=== PATIENT | female | born 1990 | race Caucasian/White ===

== ENCOUNTER 2017-08-16 10:33 | Inpatient (IN) | payer MEDICAID ==
[~2017-08-16] VITALS: Ht 167.6 cm; Wt 60.0 kg
[2017-08-16 10:43] VITALS: BP 115/75; PULSE 65; RESP 18; TEMP 97.9; O2SAT 99
[2017-08-16 12:11] LABS: AUTOMATED NEUTROPHIL # 4.1 TH/MM3 (1.8-7.7); BASOPHIL % 0.4 % (0.0-2.0); EOSINOPHIL # 0.3 TH/MM3 (0-0.4); EOSINOPHIL % 4.8 % (0.0-4.0); HEMO FLAGS DIFF FINAL; LYMPH % 23.1 % (9.0-44.0); LYMPHOCYTE # 1.5 TH/MM3 (1.0-4.8); MEAN CELL VOLUME 90.6 FL (80.0-100.0); MEAN CORPUSCULAR HEMOGLOBIN 30.7 PG (27.0-34.0); MEAN CORPUSCULAR HGB CONC 33.9 % (32.0-36.0); MONO % 9.9 % (0.0-8.0); NEUT % 61.8 % (16.0-70.0); PLATELET COUNT 291 TH/MM3 (150-450); RED BLOOD COUNT 4.42 MIL/MM3 (4.00-5.30); RED CELL DISTRIBUTION WIDTH 13.9 % (11.6-17.2); WHITE BLOOD COUNT 6.6 TH/MM3 (4.0-11.0)
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
[2017-08-16 12:29] LABS: ALKALINE PHOSPHATASE 44 U/L (45-117); ALT (GPT) 80 U/L (10-53); TOTAL BILIRUBIN ADULT 0.7 MG/DL (0.2-1.0)
[2017-08-16 12:42] LABS: ANION GAP 9 MEQ/L (5-15); BICARBONATE 23.7 MEQ/L (21.0-32.0); BLOOD UREA NITROGEN 12 MG/DL (7-18); CHLORIDE 103 MEQ/L (98-107); GLOMERULAR FILTRATION RATE 93 ML/MIN (>89); SODIUM (NA) 136 MEQ/L (136-145)
[2017-08-16 12:43] LABS: ALCOHOL LESS THAN 3 MG/DL (0-5); AST (GOT) 74 U/L (15-37); POTASSIUM 4.8 MEQ/L (3.5-5.1)
[2017-08-16] MEDS ORDERED: LORazepam 1 MG TAB PO PRN (14:15)
[2017-08-16] MEDS ORDERED: MAGNESIUM HYDROXIDE SUSP 30 ML CUP PO PRN (14:15)
[2017-08-16] MEDS ORDERED: hydrOXYzine HCL 50 MG TAB PO PRN (14:15)
[2017-08-16] MEDS ORDERED: ACETAMINOPHEN 325 MG TAB PO PRN (14:15)
[2017-08-16] MEDS ORDERED: LORazepam 2 MG/ML VIAL IM PRN (14:15)
[2017-08-16] MEDS ORDERED: ALUMINUM/MAGNESIUM/SIMETH 30 ML CUP PO PRN (14:15)
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
[2017-08-17 05:42] VITALS: BP 107/68; PULSE 96; RESP 17; TEMP 98; O2SAT 100
--- NOTE | 2017-08-17 10:24 | PD.TTN ---
Patient Problems 1. Discharge planning 2. Medication compliance 3. Knowledge deficit 4. Lack of coping skills Progress Toward Goals Provider Present: Dr. Demian Martines Provider Input: Pt is new to the unit and will be evaluated as well as possible changes to medication regiment. Nurse(s) Present: Deanna Cortez RN Nurse(s) Input: Pt is new to the unit and will continue to be monitored and evaluated. She appears to be less labile and more clear today than on admission date yesterday. Psychiatric Counselors Present: GORDON Colon Psych Therapist Input: Pt is new to the unit and will be evaluted using biopsychosocial assessment. Group Spec/RT/OT/PHILLIP Present: Rafita Borjas OT Group Spec/RT/OT/PHILLIP Input: Pt is a new admit and will be evaluated. Discharge Plan SMA Pt states that she lives with her father, where she will return after discharge , and will be set up with outpatient psychiatric follow up in the community. Documentation Scribe: GORDON Colon Jonathan LMHC Aug 17, 2017 10:24
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
[2017-08-17 13:52] LABS: AUTOMATED NEUTROPHIL # 3.8 TH/MM3 (1.8-7.7); BASOPHIL % 0.6 % (0.0-2.0); EOSINOPHIL # 0.3 TH/MM3 (0-0.4); EOSINOPHIL % 4.2 % (0.0-4.0); HEMATOCRIT 37.6 % (35.0-46.0); HEMO FLAGS DIFF FINAL; LYMPH % 29.8 % (9.0-44.0); LYMPHOCYTE # 2.1 TH/MM3 (1.0-4.8); MEAN CELL VOLUME 90.7 FL (80.0-100.0); MEAN CORPUSCULAR HEMOGLOBIN 31.4 PG (27.0-34.0); MEAN CORPUSCULAR HGB CONC 34.6 % (32.0-36.0); MONO % 10.8 % (0.0-8.0); NEUT % 54.6 % (16.0-70.0); PLATELET COUNT 255 TH/MM3 (150-450); RED BLOOD COUNT 4.14 MIL/MM3 (4.00-5.30); RED CELL DISTRIBUTION WIDTH 13.6 % (11.6-17.2)
[2017-08-17 14:05] LABS: ALT (GPT) 66 U/L (10-53); ANION GAP 7 MEQ/L (5-15); AST (GOT) 45 U/L (15-37); BICARBONATE 26.5 MEQ/L (21.0-32.0); BLOOD UREA NITROGEN 17 MG/DL (7-18); CHLORIDE 105 MEQ/L (98-107); GLOMERULAR FILTRATION RATE 73 ML/MIN (>89); SODIUM (NA) 138 MEQ/L (136-145)
[2017-08-17 14:32] LABS: ALKALINE PHOSPHATASE 46 U/L (45-117); HDL CHOLESTEROL 31.4 MG/DL (40.0-60.0); LDL CHOLESTEROL 37 MG/DL (0-99); TOTAL BILIRUBIN ADULT 0.3 MG/DL (0.2-1.0)
--- NOTE | 2017-08-17 15:22 | RADRPT ---
EXAM DATE/TIME: 08/17/2017 15:05 [facility] COMPARISON: No previous studies available for comparison. INDICATIONS : Right hand pain and swelling. No known injury. MEDICAL HISTORY : None. SURGICAL HISTORY : None. ENCOUNTER: Initial ACUITY: 1 week PAIN SCORE: 4/10 LOCATION: Right hand. FINDINGS: Three view examination of the right hand demonstrates no soft tissue swelling, dislocation, or fractu re. The carpal bones appear intact. The interphalangeal and metacarpophalangeal joints are intact. Bony mineralization is normal. CONCLUSION: No acute osseous injury. Dc Becker MD on August 17, 2017 at 15:20 Board Certified Radiologist. This report was verified electronically.
--- NOTE | 2017-08-17 15:22 | RADRPT ---
EXAM DATE/TIME: 08/17/2017 15:04 [facility] COMPARISON: No previous studies available for comparison. INDICATIONS : Right wrist pain and swelling. No known injury. MEDICAL HISTORY : None. SURGICAL HISTORY : None. ENCOUNTER: Initial ACUITY: 1 week PAIN SCORE: 4/10 LOCATION: Right wrist. FINDINGS: Three view examination of the right wrist demonstrates no soft tissue swelling, dislocation, or fract ure. The carpal bones are in normal alignment. The joint spaces are maintained. Bony mineralizatio n is normal. CONCLUSION: No acute osseous injury. Dc Becker MD on August 17, 2017 at 15:19 Board Certified Radiologist. This report was verified electronically.
[2017-08-17 15:49] LABS: HEMOGLOBIN A1a 1.4 %; HEMOGLOBIN A1b 0.9 %; HEMOGLOBIN Ao 84.6 %; HEMOGLOBIN F 0.9 %; HEMOGLOBIN LA1C 2.4 %; HEMOGLOBIN P3 3.7 %
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
[2017-08-17 18:10] VITALS: BP 105/60; PULSE 72; RESP 18; TEMP 98; O2SAT 100
--- NOTE | 2017-08-17 18:19 | RADRPT ---
EXAM DATE/TIME: 08/17/2017 17:47 [facility] COMPARISON: No previous studies available for comparison. INDICATIONS : Psychosis. MEDICAL HISTORY : None. SURGICAL HISTORY : Tubal ligation. ENCOUNTER: Subsequent ACUITY: 1 day PAIN SCORE: 0/10 LOCATION: cranial TECHNIQUE: Multiplanar, multisequence MRI of the brain was performed without contrast. FINDINGS: CEREBRUM: The ventricles are normal for age. No evidence of midline shift, mass lesion, hemorrhage or acute in farction. No extraaxial fluid collections are seen. The pituitary gland and suprasellar cistern are normal in configuration. WHITE MATTER: No significant signal abnormalities are seen in the white matter. POSTERIOR FOSSA: The cerebellum and brainstem are intact. The 4th ventricle is midline. The cerebellopontine angle is unremarkable. The cerebellar tonsils are normal in position. DIFFUSION IMAGING: No focal areas of restricted diffusion are seen. No evidence of acute infarction. EXTRACRANIAL: The visualized portions of the orbits unremarkable. Scattered sinus disease including mucoperiosteal thickening of the ethmoid, right frontal and both maxillary sinuses. CONCLUSION: 1. No acute intracranial abnormality. 2. Scattered sinus disease. Murtaza Gooden MD on August 17, 2017 at 18:15 Board Certified Radiologist. This report was verified electronically.
--- NOTE | 2017-08-17 20:00 | EKG ---
Date Performed: 08/17/2017 Time Performed: 17:11:39 PTAGE: 26 years EKG: Sinus rhythm NORMAL ECG NO PREVIOUS TRACING DOCTOR: Billy Coburn Interpretating Date/Time 08/17/2017 19:58:02
[2017-08-17] MEDS: OLANZapine ODT 5 MG TAB PO SCH (21:00)
[2017-08-18] MEDS ORDERED: hydrOXYzine HCL 50 MG TAB PO PRN (03:00)
[2017-08-18 05:48] VITALS: BP 99/49; PULSE 70; RESP 18; TEMP 98.2; O2SAT 97
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
[2017-08-18 10:38] LABS: INDIRECT BILIRUBIN 0.1 MG/DL (0.0-0.8); TOTAL BILIRUBIN ADULT 0.2 MG/DL (0.2-1.0)
[2017-08-18 17:03] VITALS: BP 113/59; PULSE 61; RESP 18; TEMP 97.5; O2SAT 98
--- NOTE | 2017-08-18 17:38 | MG ---
cc: GAUDENCIO WAKEFIELD MD Lab No: Date: 08/18/2017 Age: Sex: F Race: ELECTROENCEPHALOGRAM RECORD NUMBER [id number] DATE OF 1990 HISTORY A 26-year-old with a history of depression and anxiety, mental status changes. DESCRIPTION Well formed alpha activity 8-10 Hz, 20-50 microvolts with low amplitude beta in the frontal channels followed by generalized slowing with transition into drowsy state followed by awake drowsy off and on. Some vertex waves noted as well as sleep spindles suggestive of stage I and stage II sleep. A couple of central sharp transients epoch 97. Reduced driving with photic stimulation. Rhythmic theta bursts occurring epoch 69 at T5. INTERPRETATION Mild nonspecific changes noted above, otherwise stable awake sleep EEG. Clinical correlation. Gaudencio Wakefield MD MG/KK /4:23 PM /5:19 PM
[2017-08-18] MEDS: OLANZapine ODT 5 MG TAB PO SCH (20:27)
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
[2017-08-20 07:49] LABS: PHENCYCLIDINE URINE NEG (NEG)
[2017-08-20 07:50] LABS: BATH SALTS (MDPV) UR NEG (NEG); ECSTASY (MDMA) UR NEG (NEG); HEROIN (6-ACETYLMORPHINE) UR NEG (NEG); K2 SPICE UR NEG (NEG); OBGABAPENTIN UR NEG (NEG); OBHYDROMORPHONE U NEG (NEG); OBMETHADONE UR NEG (NEG)
== END 2017-08-19 12:50 | disposition left against medical advice (07) | DRG 885 ==
LOC: NEPD 10:33 → NEDA 14:09 → H270 15:33
PROVIDERS: ADMIT Psychiatry & Neurology Psychiatry; ATTEND Psychiatry & Neurology Psychiatry
DX: F23 Brief psychotic disorder (principal); R45.851 Suicidal ideations; F43.10 Post-traumatic stress disorder, unspecified; F32.9 Major depressive disorder, single episode, unspecified; R74.0 Nonspecific elevation of levels of transaminase and lactic acid dehydrogenase [LDH]; L29.9 Pruritus, unspecified; M79.641 Pain in right hand; F17.210 Nicotine dependence, cigarettes, uncomplicated; Z81.8 Family history of other mental and behavioral disorders; Z91.419 Personal history of unspecified adult abuse
CPT/HCPCS: 70551; 73110; 73130; 80053; 80061; 80074; 80076; 80307; 82140; 82306; 82607; 83036; 84439; 84443; 84703; 85025; 86592; 86703; 93005; 95819; 99285; G0481

== ENCOUNTER 2018-03-02 11:32 | Emergency (ER) | payer OTHER ==
[~2018-03-02] VITALS: Ht 170.2 cm; Wt 64.0 kg
[2018-03-02 11:47] VITALS: BP 133/65; PULSE 89; RESP 18; TEMP 97.9; O2SAT 98
[2018-03-02] MEDS ORDERED: TETANUS/DIPHTHERIA TOXOID ADULT 0.5 ML VIAL IM ONE (12:00)
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
[2018-03-02 13:15] LABS: AUTOMATED NEUTROPHIL # 4.2 TH/MM3 (1.8-7.7); BASOPHIL % 0.5 % (0.0-2.0); EOSINOPHIL # 0.1 TH/MM3 (0-0.4); EOSINOPHIL % 1.7 % (0.0-4.0); HEMATOCRIT 38.8 % (35.0-46.0); HEMOGLOBIN 12.7 GM/DL (11.6-15.3); LYMPH % 23.5 % (9.0-44.0); LYMPHOCYTE # 1.5 TH/MM3 (1.0-4.8); MEAN CELL VOLUME 87.7 FL (80.0-100.0); MEAN CORPUSCULAR HEMOGLOBIN 28.8 PG (27.0-34.0); MEAN CORPUSCULAR HGB CONC 32.9 % (32.0-36.0); MONO % 8.5 % (0.0-8.0); MONOCYTE # 0.5 TH/MM3 (0-0.9); NEUT % 65.8 % (16.0-70.0); PLATELET COUNT 232 TH/MM3 (150-450); RED BLOOD COUNT 4.42 MIL/MM3 (4.00-5.30); WHITE BLOOD COUNT 6.4 TH/MM3 (4.0-11.0)
[2018-03-02] MEDS ORDERED: IOHEXOL 350 MG/ML 10 ML VIAL (for RAD DIAG) IVCONTRAST ONE (13:20)
[2018-03-02 13:25] LABS: PROTHROMBIN TIME - PATIENT 10.1 SEC (9.8-11.6)
[2018-03-02 13:29] LABS: BICARBONATE 25.4 MEQ/L (21.0-32.0); CALCIUM 8.5 MG/DL (8.5-10.1); CREATININE 0.77 MG/DL (0.50-1.00)
[2018-03-02] MEDS ORDERED: LORazepam 2 MG/ML VIAL IV PUSH ONE (14:15)
[2018-03-02] MEDS ORDERED: diphenhydrAMINE HCL 50 MG/ML VIAL IV PUSH ONE (14:15)
[2018-03-02] MEDS ORDERED: ZIPRASIDONE MESYLATE 20 MG VIAL IM ONE (14:30)
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
[2018-03-02] MEDS ORDERED: no meds (16:56)
[2018-03-02 16:58] VITALS: BP 121/74; PULSE 74; RESP 16; O2SAT 99
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
[2018-03-03] MEDS ORDERED: AMOXICILLIN/CLAVULANATE K 875 MG TAB PO ONE (06:15)
[2018-03-03] MEDS ORDERED: AUGM875T3 PO (06:15)
[2018-03-03 08:05] VITALS: BP 135/75; PULSE 87; RESP 15; TEMP 98.9; O2SAT 100
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
--- NOTE | 2018-03-03 14:19 | PD ---
Physical Exam Date Seen by Provider: Mar 03, 2018 Time Seen by Provider: 14:17 Narrative For full history and physical examination please see previous notes. Data Data Last Documented VS Vital Signs Date Time Temp Pulse Resp B/P (MAP) Pulse Ox O2 Delivery O2 Flow Rate FiO2 03/03/18 08:05 98.9 87 15 135/75 (95) 100 Room Air Orders Orders Basic Metabolic Panel (Bmp) (03/02/18 11:53) Complete Blood Count With Diff (03/02/18 11:53) Prothrombin Time / Inr (Pt) (03/02/18 11:53) Act Partial Throm Time (Ptt) (03/02/18 11:53) Type And Screen (03/02/18 11:53) Drug Screen, Random Urine (03/02/18 11:53) Ct Brain W/O Iv Contrast(Rout) (03/02/18 11:53) Ct Cerv Spine W/O Contrast (03/02/18 11:53) Ct Abd/Pel W Iv Contrast(Rout) (03/02/18 11:53) Ct Thorax/ Chest W Iv Contrast (03/02/18 11:53) Ct Thor Spine W Iv Contrast (03/02/18 11:53) Ct Lumb Spine W Iv Contrast (03/02/18 11:53) Apply Cervical Collar (03/02/18 11:53) Iv Access Insert/Monitor (03/02/18 11:53) Ecg Monitoring (03/02/18 11:53) Ed Urine Pregnancytest Poc (03/02/18 11:53) Forearm (2vws) (03/02/18 ) Tetanus/Diphtheria Tox Adult (Tetanus/Di (03/02/18 12:00) Chest, Single Ap (03/02/18 ) Alcohol (Ethanol) (03/02/18 11:56) Elbow, Complete (4 Vws) (03/02/18 ) Lorazepam Inj (Ativan Inj) (03/02/18 14:15) Diphenhydramine Inj (Benadryl Inj) (03/02/18 14:15) Ziprasidone Inj (Geodon Inj) (03/02/18 14:30) Psych Screen (03/02/18 16:35) Amoxicil-Clavulanate (Augmentin) (03/03/18 06:15) Diet Regular Basic (03/03/18 Breakfast) Ed Discharge Order (03/03/18 14:16) Labs Laboratory Tests Test 03/02/18 12:20 03/02/18 15:04 White Blood Count 6.4 TH/MM3 Red Blood Count 4.42 MIL/MM3 Hemoglobin 12.7 GM/DL Hematocrit 38.8 % Mean Corpuscular Volume 87.7 FL Mean Corpuscular Hemoglobin 28.8 PG Mean Corpuscular Hemoglobin Concent 32.9 % Red Cell Distribution Width 15.0 % Platelet Count 232 TH/MM3 Mean Platelet Volume 7.0 FL Neutrophils (%) (Auto) 65.8 % Lymphocytes (%) (Auto) 23.5 % Monocytes (%) (Auto) 8.5 % Eosinophils (%) (Auto) 1.7 % Basophils (%) (Auto) 0.5 % Neutrophils # (Auto) 4.2 TH/MM3 Lymphocytes # (Auto) 1.5 TH/MM3 Monocytes # (Auto) 0.5 TH/MM3 Eosinophils # (Auto) 0.1 TH/MM3 Basophils # (Auto) 0.0 TH/MM3 CBC Comment DIFF FINAL Differential Comment Prothrombin Time 10.1 SEC Prothromb Time International Ratio 1.0 RATIO Activated Partial Thromboplast Time 25.0 SEC Blood Urea Nitrogen 15 MG/DL Creatinine 0.77 MG/DL Random Glucose 108 MG/DL Calcium Level 8.5 MG/DL Sodium Level 141 MEQ/L Potassium Level 3.7 MEQ/L Chloride Level 108 MEQ/L Carbon Dioxide Level 25.4 MEQ/L Anion Gap 8 MEQ/L Estimat Glomerular Filtration Rate 89 ML/MIN Ethyl Alcohol Level LESS THAN 3 MG/DL Urine Opiates Screen NEG Urine Barbiturates Screen NEG Urine Amphetamines Screen POS Urine Benzodiazepines Screen NEG Urine Cocaine Screen NEG Urine Cannabinoids Screen NEG MDM Medical Record Reviewed: Yes Supervised Visit with KELSIE: No Narrative Course Patient is a 27-year-old female presented to [facility] from under [facility] for psychiatric evaluation. She was seen in the emergency department, medically cleared. Patient was then seen and evaluated by psychiatry, she will be transferred to [facility] for further rehabilitation. Diagnosis Primary Impression: Abrasions of multiple sites Additional Impressions: Multiple contusions Substance abuse Referrals: [facility] Scripts Amoxicillin-Clavulanate (Augmentin) 875-125 Mg Tab 1 TAB PO BID for Infection, #20 TAB 0 Refills Prov: Peacock,Turlock Z. MD 03/03/18 Disposition: 65 DISC TO [facility] Condition: Stable Maegan Duran [facility] Mar 03, 2018 14:19
[2018-03-03 16:30] VITALS: BP 132/78
== END 2018-03-03 14:40 | disposition short-term general hospital (02) ==
LOC: NEPC 11:32 → NEDAMB 03-03 14:40
DX: F19.10 Other psychoactive substance abuse, uncomplicated (principal); S50.811A Abrasion of right forearm, initial encounter; S00.03XA Contusion of scalp, initial encounter; S30.1XXA Contusion of abdominal wall, initial encounter; F32.9 Major depressive disorder, single episode, unspecified; F41.9 Anxiety disorder, unspecified; V48.4XXA Person boarding or alighting a car injured in noncollision transport accident, initial encounter; Z59.0 Homelessness; Z72.0 Tobacco use
CPT/HCPCS: 70450; 71045; 71260; 72125; 72129; 72132; 73080; 73090; 74177; 80048; 80307; 84703; 85025; 85610; 85730; 86850; 86900; 86901; 90471; 90714; 96372; 96374; 99285; J1200; J3486; Q9967

== ENCOUNTER 2018-03-06 11:46 | Emergency (ER) | payer OTHER ==
[~2018-03-06] VITALS: Ht 162.6 cm; Wt 59.1 kg
[~2018-03-06 11:46] MED LIST: AUGM875T3 PO
[2018-03-06 11:56] VITALS: BP 122/61; PULSE 109; RESP 18; TEMP 97.6; O2SAT 99
[2018-03-06 12:11] VITALS: BP 122/61; PULSE 109; RESP 18; TEMP 97.4; O2SAT 99
[2018-03-06 12:14] LABS: AUTOMATED NEUTROPHIL # 4.4 TH/MM3 (1.8-7.7); BASOPHIL # 0.1 TH/MM3 (0-0.2); BASOPHIL % 0.9 % (0.0-2.0); EOSINOPHIL # 0.2 TH/MM3 (0-0.4); EOSINOPHIL % 2.1 % (0.0-4.0); HEMATOCRIT 40.6 % (35.0-46.0); HEMOGLOBIN 13.7 GM/DL (11.6-15.3); LYMPH % 28.5 % (9.0-44.0); MEAN CELL VOLUME 87.6 FL (80.0-100.0); MEAN CORPUSCULAR HEMOGLOBIN 29.5 PG (27.0-34.0); MEAN CORPUSCULAR HGB CONC 33.7 % (32.0-36.0); MEAN PLATELET VOLUME 6.9 FL (7.0-11.0); MONO % 6.8 % (0.0-8.0); MONOCYTE # 0.5 TH/MM3 (0-0.9); NEUT % 61.7 % (16.0-70.0); PLATELET COUNT 278 TH/MM3 (150-450); RED BLOOD COUNT 4.64 MIL/MM3 (4.00-5.30); RED CELL DISTRIBUTION WIDTH 15.2 % (11.6-17.2); WHITE BLOOD COUNT 7.2 TH/MM3 (4.0-11.0)
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
--- NOTE | 2018-03-06 12:26 | PD ---
Physical Exam Date Seen by Provider: Mar 06, 2018 Time Seen by Provider: 12:25 Narrative Patient was initially evaluated by FREYA Bethea. Please see her note for those details. Data Data Last Documented VS Vital Signs Date Time Temp Pulse Resp B/P (MAP) Pulse Ox O2 Delivery O2 Flow Rate FiO2 03/06/18 12:11 97.4 109 18 122/61 (81) 99 Room Air Orders Orders Complete Blood Count With Diff (03/06/18 12:03) Comprehensive Metabolic Panel (03/06/18 12:03) Psych Screen (03/06/18 12:03) Diet Regular Basic (03/06/18 Lunch) Ibuprofen (Motrin) (03/06/18 14:00) Labs Laboratory Tests Test 03/06/18 12:00 White Blood Count 7.2 TH/MM3 Red Blood Count 4.64 MIL/MM3 Hemoglobin 13.7 GM/DL Hematocrit 40.6 % Mean Corpuscular Volume 87.6 FL Mean Corpuscular Hemoglobin 29.5 PG Mean Corpuscular Hemoglobin Concent 33.7 % Red Cell Distribution Width 15.2 % Platelet Count 278 TH/MM3 Mean Platelet Volume 6.9 FL Neutrophils (%) (Auto) 61.7 % Lymphocytes (%) (Auto) 28.5 % Monocytes (%) (Auto) 6.8 % Eosinophils (%) (Auto) 2.1 % Basophils (%) (Auto) 0.9 % Neutrophils # (Auto) 4.4 TH/MM3 Lymphocytes # (Auto) 2.0 TH/MM3 Monocytes # (Auto) 0.5 TH/MM3 Eosinophils # (Auto) 0.2 TH/MM3 Basophils # (Auto) 0.1 TH/MM3 CBC Comment DIFF FINAL Differential Comment Blood Urea Nitrogen 25 MG/DL Creatinine 0.98 MG/DL Random Glucose 94 MG/DL Total Protein 7.8 GM/DL Albumin 4.0 GM/DL Calcium Level 8.9 MG/DL Alkaline Phosphatase 74 U/L Aspartate Amino Transf (AST/SGOT) 73 U/L Alanine Aminotransferase (ALT/SGPT) 89 U/L Total Bilirubin 0.4 MG/DL Sodium Level 138 MEQ/L Potassium Level 4.8 MEQ/L Chloride Level 105 MEQ/L Carbon Dioxide Level 24.4 MEQ/L Anion Gap 9 MEQ/L Estimat Glomerular Filtration Rate 67 ML/MIN [facility] Supervised Visit with KELSIE: No Differential Diagnosis Adjustment disorder versus anxiety versus bipolar versus depression versus dementia versus electrolyte disorder versus malingering versus mood disorder versus ODD versus psychosis versus PTSD versus schizophrenia versus schizoaffective disorder versus substance-induced mood disorder versus other Narrative Course 27-year-old female brought to the ED under Lennon act. She was initially evaluated by FREYA Bethea. Please see her note for those details. She was signed out to me with lab work pending. No concerning abnormalities a CBC. Mild elevation of the LFTs on CMP. Normal bilirubin. LFT elevation can be followed on outpatient basis. Patient is medically cleared for psychiatric evaluation. The patient was evaluated by greg Rodriguez. She feels the patient is safe for discharge and outpatient follow up. The patient is stable and discharged home. Diagnosis Primary Impression: Right hand pain Additional Impression: Transaminitis Referrals: Primary Care Physician Disposition: 01 DISCHARGE HOME Condition: Stable Jing Marie Mar 06, 2018 12:26
[2018-03-06 12:57] LABS: ALT (GPT) 89 U/L (10-53); AST (GOT) 73 U/L (15-37); BICARBONATE 24.4 MEQ/L (21.0-32.0); BLOOD UREA NITROGEN 25 MG/DL (7-18); CALCIUM 8.9 MG/DL (8.5-10.1); CHLORIDE 105 MEQ/L (98-107); CREATININE 0.98 MG/DL (0.50-1.00); GLOMERULAR FILTRATION RATE 67 ML/MIN (>89); GLUCOSE,RANDOM 94 MG/DL (74-106); SODIUM (NA) 138 MEQ/L (136-145)
[2018-03-06 12:59] LABS: ALKALINE PHOSPHATASE 74 U/L (45-117); TOTAL BILIRUBIN ADULT 0.4 MG/DL (0.2-1.0); TOTAL PROTEIN 7.8 GM/DL (6.4-8.2)
[2018-03-06] MEDS ORDERED: IBUPROFEN 800 MG TAB PO ONE (14:00)
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
== END 2018-03-06 15:39 | disposition home or self-care (01) ==
LOC: NEPD 11:46
DX: M79.641 Pain in right hand (principal); R74.0 Nonspecific elevation of levels of transaminase and lactic acid dehydrogenase [LDH]; N39.0 Urinary tract infection, site not specified; S50.811D Abrasion of right forearm, subsequent encounter; V89.2XXD Person injured in unspecified motor-vehicle accident, traffic, subsequent encounter; J45.909 Unspecified asthma, uncomplicated; F32.9 Major depressive disorder, single episode, unspecified; F41.9 Anxiety disorder, unspecified; F42.9 Obsessive-compulsive disorder, unspecified; F43.10 Post-traumatic stress disorder, unspecified; F16.90 Hallucinogen use, unspecified, uncomplicated; Z72.0 Tobacco use
CPT/HCPCS: 80053; 85025; 99284

== ENCOUNTER 2018-03-14 16:04 | Emergency (ER) | payer MEDICAID, OTHER ==
[2018-03-14 16:21] VITALS: BP 99/60; PULSE 96; RESP 16; TEMP 99.2; O2SAT 98
[2018-03-14] MEDS ORDERED: SODIUM CHLOR 0.9% 1000 ML INJ 1,000 ML IV SCH (16:23)
[2018-03-14] MEDS ORDERED: SODIUM CHLORIDE 0.9% FLUSH 10 ML FLUSH IV FLUSH PRN (16:30)
[2018-03-14] MEDS ORDERED: KETOROLAC TROMETHAMINE 30 MG/ML (IVP) VIAL IV PUSH ONE (16:30)
--- NOTE | 2018-03-14 16:43 | PD ---
HPI Chief Complaint: Flank/Kidney Pain Time Seen by Provider: 16:13 Travel History International Travel<30 days: No Contact w/Intl Traveler<30days: No Traveled to known affect area: No History of Present Illness HPI Patient is a 27-year-old female who presents the emergency room for evaluation of left-sided flank pain. Patient reports that she has had kidney stone in the left kidney for many years which bothers her. Patient reports that she is having a flareup of her left-sided kidney stone. Patient reports that she has been having left-sided flank pain since yesterday. Patient reports that nothing makes pain better or worse. Patient arrives to the emergency room via [facility] from [facility] as she is currently here for rehab. Patient denies any fever or chills, reports dysuria, denies any urgency or frequency or hematuria. Patient reports that she was currently treated for urinary tract infection and was also concerned that she may still have another infection PFSH Past Medical History Asthma: Yes Anxiety: Yes Depression: Yes ?: Unknown Past Surgical History Abdominal Surgery: No AICD: No Arteriovenous Shunt: No Cardiac Surgery: No Ear Surgery: No Endocrine Surgery: No Eye Surgery: No Genitourinary Surgery: No Gynecologic Surgery: No Hysterectomy: No Insulin Pump: No Joint Replacement: No Neurologic Surgery: No Oral Surgery: No Pacemaker: No Thoracic Surgery: No Other Surgery: No Family History Family Hypercholesterolemia: No Social History Alcohol Use: No Tobacco Use: Yes Substance Use: Yes (mollies) Allergies-Medications (Allergen,Severity, Reaction): Uncoded Allergies: antihistamines (Adverse Reaction, Intermediate, 03/02/18) Reported Meds & Prescriptions Reported Meds & Active Scripts Active Augmentin (Amoxicillin-Clavulanate) 875-125 Mg Tab 1 Tab PO BID Review of Systems General / Constitutional: No: Fever Eyes: No: Visual changes HENT: No: Headaches Cardiovascular: No: Chest Pain or Discomfort Respiratory: No: Shortness of Breath Gastrointestinal: No: Abdominal Pain Genitourinary: Positive: Dysuria, Flank Pain, No: Urgency, Frequency, Hematuria , Hesitancy Musculoskeletal: No: Pain Skin: No Rash Neurologic: No: Weakness Psychiatric: No: Depression Endocrine: No: Polydipsia Hematologic/Lymphatic: No: Easy Bruising Physical Exam Narrative GENERAL: moderate distress SKIN: Focused skin assessment warm/dry. HEAD: Atraumatic. Normocephalic. EYES: Pupils equal and round. No scleral icterus. No injection or drainage. ENT: No nasal bleeding or discharge. Mucous membranes pink and moist. NECK: Trachea midline. No JVD. CARDIOVASCULAR: Regular rate and rhythm. No murmur appreciated. RESPIRATORY: No accessory muscle use. Clear to auscultation. Breath sounds equal bilaterally. GASTROINTESTINAL: Abdomen soft, non-tender, nondistended. Hepatic and splenic margins not palpable. Patient with left sided flank pain on exam MUSCULOSKELETAL: No obvious deformities. No clubbing. No cyanosis. No edema. NEUROLOGICAL: Awake and alert. No obvious cranial nerve deficits. Motor grossly within normal limits. Normal speech. PSYCHIATRIC: Appropriate mood and affect; insight and judgment normal. Data Data Last Documented VS Vital Signs Date Time Temp Pulse Resp B/P (MAP) Pulse Ox O2 Delivery O2 Flow Rate FiO2 03/14/18 16:21 99.2 96 16 99/60 (73) 98 Orders Orders Complete Blood Count With Diff (03/14/18 16:23) Comprehensive Metabolic Panel (03/14/18 16:23) Prothrombin Time / Inr (Pt) (03/14/18 16:23) Act Partial Throm Time (Ptt) (03/14/18 16:23) Urinalysis - C+S If Indicated (03/14/18 16:23) Ct Abd/Pel W/O Iv Contrast (03/14/18 16:23) Iv Access Insert/Monitor (03/14/18 16:23) Ecg Monitoring (03/14/18 16:23) Oximetry (03/14/18 16:23) Sodium Chlor 0.9% 1000 Ml Inj (Ns 1000 M (03/14/18 16:23) Sodium Chloride 0.9% Flush (Ns Flush) (03/14/18 16:30) Ed Urine Pregnancytest Poc (03/14/18 16:23) Ketorolac Inj (Toradol Inj) (03/14/18 16:30) MDM Medical Decision Making Medical Screen Exam Complete: Yes Emergency Medical Condition: Yes Medical Record Reviewed: Yes Interpretation(s) Vital Signs Date Time Temp Pulse Resp B/P (MAP) Pulse Ox O2 Delivery O2 Flow Rate FiO2 03/14/18 16:21 99.2 96 16 99/60 (73) 98 Differential Diagnosis UTI, pyelonephritis, kidney stone Narrative Course During the course of the patients emergency department visit, the patients history, examination, and differential diagnosis were reviewed with the patient. The patient was placed on a security monitor with oximetry and frequent blood pressure monitoring. The patient had an IV access obtained and blood work sent for analysis. The patient was initially provided IV fluids, IV Toradol CT of the abdomen and pelvis were sent to evaluate for possible kidney stone Patient was signed out to oncoming physician at change of shift. Kanwal Russell DO Mar 14, 2018 16:43
--- NOTE | 2018-03-14 17:11 | PD ---
Physical Exam Narrative Received sign out from previous provider to follow up labs, CT a/p-. Please see previous provider's note for further details. 27yo F with left flank pain. Labs reviewed, no leukocytosis. H/H 10.8/32.1. BUN mildly elevated at 20 which is less than a few days ago. Liver enzymes mildly elevated but is also trending down from a few days ago. UA showed negative leukocyte. Culture not indicated. Urine negative. CT a/p showed no acute abnormality is identified within the abdomen or pelvis on this non contrast examination. There is a stable 10mm nonobstructing stone in left lower pole renal collecting system. Nonspecific trace of free fluid in the pelvis. May be physiologic. Pt given NS IVF, and toradol. Data Data Last Documented VS Vital Signs Date Time Temp Pulse Resp B/P (MAP) Pulse Ox O2 Delivery O2 Flow Rate FiO2 03/14/18 16:21 99.2 96 16 99/60 (73) 98 Orders Orders Complete Blood Count With Diff (03/14/18 16:23) Comprehensive Metabolic Panel (03/14/18 16:23) Prothrombin Time / Inr (Pt) (03/14/18 16:23) Act Partial Throm Time (Ptt) (03/14/18 16:23) Urinalysis - C+S If Indicated (03/14/18 16:23) Ct Abd/Pel W/O Iv Contrast (03/14/18 16:23) Iv Access Insert/Monitor (03/14/18 16:23) Ecg Monitoring (03/14/18 16:23) Oximetry (03/14/18 16:23) Sodium Chlor 0.9% 1000 Ml Inj (Ns 1000 M (03/14/18 16:23) Sodium Chloride 0.9% Flush (Ns Flush) (03/14/18 16:30) Ed Urine Pregnancytest Poc (03/14/18 16:23) Ketorolac Inj (Toradol Inj) (03/14/18 16:30) Acetaminophen (Tylenol) (03/14/18 19:30) Ed Discharge Order (03/14/18 19:20) Labs Laboratory Tests Test 03/14/18 16:35 03/14/18 16:38 White Blood Count 5.5 TH/MM3 Red Blood Count 3.56 MIL/MM3 Hemoglobin 10.8 GM/DL Hematocrit 32.1 % Mean Corpuscular Volume 90.4 FL Mean Corpuscular Hemoglobin 30.3 PG Mean Corpuscular Hemoglobin Concent 33.5 % Red Cell Distribution Width 15.9 % Platelet Count 245 TH/MM3 Mean Platelet Volume 7.0 FL Neutrophils (%) (Auto) 56.3 % Lymphocytes (%) (Auto) 33.3 % Monocytes (%) (Auto) 7.7 % Eosinophils (%) (Auto) 2.2 % Basophils (%) (Auto) 0.5 % Neutrophils # (Auto) 3.1 TH/MM3 Lymphocytes # (Auto) 1.8 TH/MM3 Monocytes # (Auto) 0.4 TH/MM3 Eosinophils # (Auto) 0.1 TH/MM3 Basophils # (Auto) 0.0 TH/MM3 CBC Comment DIFF FINAL Differential Comment Prothrombin Time 9.9 SEC Prothromb Time International Ratio 1.0 RATIO Activated Partial Thromboplast Time 24.5 SEC Blood Urea Nitrogen 20 MG/DL Creatinine 0.58 MG/DL Random Glucose 78 MG/DL Total Protein 6.4 GM/DL Albumin 3.3 GM/DL Calcium Level 9.0 MG/DL Alkaline Phosphatase 78 U/L Aspartate Amino Transf (AST/SGOT) 41 U/L Alanine Aminotransferase (ALT/SGPT) 62 U/L Total Bilirubin 0.2 MG/DL Sodium Level 141 MEQ/L Potassium Level 4.8 MEQ/L Chloride Level 103 MEQ/L Carbon Dioxide Level 30.9 MEQ/L Anion Gap 7 MEQ/L Estimat Glomerular Filtration Rate 123 ML/MIN Urine Color YELLOW Urine Turbidity CLOUDY Urine pH 7.0 Urine Specific [place] 1.009 Urine Protein NEG mg/dL Urine Glucose (UA) NEG mg/dL Urine Ketones NEG mg/dL Urine Occult Blood NEG Urine Nitrite NEG Urine Bilirubin NEG Urine Urobilinogen LESS THAN 2 mg/dL Urine Leukocyte Esterase NEG Urine RBC 1 /hpf Urine Squamous Epithelial Cells <1 /hpf Urine Amorphous Sediment FEW Microscopic Urinalysis Comment CULT NOT INDICATED MDM Supervised Visit with KELSIE: No Diagnosis Primary Impression: Left flank pain Patient Instructions: General Instructions Departure Forms: Tests/Procedures Additional Instruction: Please follow up with your primary care physician in 2-3 days. Return to the ED if symptoms worsen. Med/Other Pt SpecificInfo: Prescription(s) given Scripts Ranitidine (Zantac) 150 Mg Tab 150 MG PO BID for Reduce Stomach Acid, #60 TAB 0 Refills Prov: Meeta Shannon DO 03/14/18 Acetaminophen (Tylenol) 325 Mg Tab 650 MG PO Q6H Y for PAIN SCALE 1 TO 4, #20 TAB 0 Refills Prov: Meeta Shannon DO 03/14/18 Disposition: 01 DISCHARGE HOME Condition: Stable Meeta Shannon DO Mar 14, 2018 17:11
[2018-03-14 17:37] LABS: AUTOMATED NEUTROPHIL # 3.1 TH/MM3 (1.8-7.7); BASOPHIL % 0.5 % (0.0-2.0); EOSINOPHIL # 0.1 TH/MM3 (0-0.4); EOSINOPHIL % 2.2 % (0.0-4.0); HEMATOCRIT 32.1 % (35.0-46.0); HEMOGLOBIN 10.8 GM/DL (11.6-15.3); LYMPH % 33.3 % (9.0-44.0); LYMPHOCYTE # 1.8 TH/MM3 (1.0-4.8); MEAN CELL VOLUME 90.4 FL (80.0-100.0); MEAN CORPUSCULAR HEMOGLOBIN 30.3 PG (27.0-34.0); MEAN CORPUSCULAR HGB CONC 33.5 % (32.0-36.0); MONO % 7.7 % (0.0-8.0); MONOCYTE # 0.4 TH/MM3 (0-0.9); NEUT % 56.3 % (16.0-70.0); PLATELET COUNT 245 TH/MM3 (150-450); RED BLOOD COUNT 3.56 MIL/MM3 (4.00-5.30); RED CELL DISTRIBUTION WIDTH 15.9 % (11.6-17.2); WHITE BLOOD COUNT 5.5 TH/MM3 (4.0-11.0)
[2018-03-14 17:48] LABS: PROTHROMBIN TIME - PATIENT 9.9 SEC (9.8-11.6)
[2018-03-14 17:54] LABS: AMORPHOUS SEDIMENT, URINE FEW; BILIRUBIN, URINE NEG (NEG); BLOOD, URINE NEG (NEG); GLUCOSE,URINE NEG (NEG); KETONE, URINE NEG (NEG); NITRITE,URINE NEG (NEG); SQUAMOUS EPITHELIAL CELL URINE <1 /hpf (0-5); URINE COLOR YELLOW (YELLW/STRAW); URINE LEUKOCYTE ESTERASE NEG (NEG)
[2018-03-14 17:57] LABS: ALBUMIN 3.3 GM/DL (3.4-5.0); ALT (GPT) 62 U/L (10-53); AST (GOT) 41 U/L (15-37); BICARBONATE 30.9 MEQ/L (21.0-32.0); BLOOD UREA NITROGEN 20 MG/DL (7-18); CHLORIDE 103 MEQ/L (98-107); CREATININE 0.58 MG/DL (0.50-1.00); GLOMERULAR FILTRATION RATE 123 ML/MIN (>89); GLUCOSE,RANDOM 78 MG/DL (74-106); SODIUM (NA) 141 MEQ/L (136-145)
[2018-03-14 18:00] LABS: ALKALINE PHOSPHATASE 78 U/L (45-117); TOTAL BILIRUBIN ADULT 0.2 MG/DL (0.2-1.0); TOTAL PROTEIN 6.4 GM/DL (6.4-8.2)
--- NOTE | 2018-03-14 18:51 | RADRPT ---
EXAM DATE: 03/14/2018 6:24 PM EDT AGE/SEX: 27 years / Female INDICATIONS: Left flank pain today. CLINICAL DATA: This is the patient's initial encounter. Patient reports that signs and symptoms have been present for 1 day and indicates a pain score of 10/10. MEDICAL/SURGICAL HISTORY: Renal calculi. None. RADIATION DOSE: 9.16 CTDI (mGy) COMPARISON: [facility] [place], CT ABDOMEN & PELVIS W CONTRAST, 03/02/2018. . TECHNIQUE: Multiple contiguous axial images were obtained through the abdomen. Images were obtained using multiple row detector helical technique. Using automated exposure control and adjustment of the mA and/or kV according to patient size, radiation dose was kept as low as reasonably achievable to o btain optimal diagnostic quality images. DICOM format image data is available electronically for rev iew and comparison. FINDINGS: Lower chest: There are bibasilar parenchymal opacities representing either atelectasis or consolidati on. Hepatobiliary: No liver lesion is identified on this noncontrast examination. No calcified gallstones are present. Kidneys: There is a stable 10 mm nonobstructing stone in the left lower pole collecting system. No hy dronephrosis or mass is identified. Adrenal Glands: Within normal limits. Spleen: Within normal limits. Pancreas: Within normal limits. Vascular: The aorta is nonaneurysmal. Bowel/Mesentery: The stomach and small bowel demonstrate no abnormality. No acute colon abnormality i s seen. There is no free intraperitoneal air. There is trace free fluid in the pelvis. Abdominal Wall: No hernia is visualized. Retroperitoneum: No lymphadenopathy. Bladder: No wall thickening or mass. Reproductive: Within normal limits. Inguinal: No lymphadenopathy or hernia. Musculoskeletal: No acute osseous abnormality is identified. CONCLUSION: 1. No acute abnormality is identified within the abdomen or pelvis on this noncontrast examination. There is a stable 10 mm nonobstructing stone in the left lower pole renal collecting system. 2. Nonspecific trace of free fluid in the pelvis. However, this may be physiologic. Electronically signed by: Samy Love MD 03/14/2018 6:49 PM EDT
[2018-03-14] MEDS ORDERED: TYLE325T PO (19:23)
[2018-03-14] MEDS ORDERED: ZANT150T2 PO (19:23)
[2018-03-14] MEDS ORDERED: ACETAMINOPHEN 325 MG TAB PO ONE (19:30)
== END 2018-03-14 19:39 | disposition home or self-care (01) ==
LOC: NEPD 16:04
DX: R10.9 Unspecified abdominal pain (principal); Z72.0 Tobacco use
CPT/HCPCS: 74176; 80053; 81001; 84703; 85025; 85610; 85730; 96374; 99284; J1885; J7030